=== PATIENT | male | born 1950 | race American Indian/Alaskan Native ===

== ENCOUNTER 2017-08-01 14:05 | Outpatient (CLI) | payer OTHER, MEDICARE ==
[2017-08-01] MEDS ORDERED: PROVENTIL IH ONE (16:08)
== END 2017-08-01 14:06 | disposition home or self-care (01) ==
LOC: PF 14:05
PROVIDERS: ATTEND Internal Medicine
DX: R05 Cough (principal)
CPT/HCPCS: 36600; 82803; 94060; 94640; 94726; 94729